=== PATIENT | female | born 1985 | race Caucasian/White ===

== ENCOUNTER → 2018-02-26 | Outpatient (CLI) | payer OTHER ==
[~2018-02-26] MED LIST: MOTRIN 600600 MG/TAB PO; NORCO 325 MG-51 TAB PO; PRENATAL1 TA1 PO; SENOKOT S 50 MG1 TAB PO
== END ==
LOC: COL.RAD 08:06
DX: D25.2 Subserosal leiomyoma of uterus (principal); N83.202 Unspecified ovarian cyst, left side